=== PATIENT | female | born 1935 | race Caucasian/White ===

== ENCOUNTER → 2016-07-17 | Outpatient (CLI) | payer MEDICARE, OTHER ==
[~2016-07-17] MED LIST: ACYC-113 PO; ALBU8.5H3 INH; ALBU8.5H5 INH; CEFD300C2 PO; CETI10TA24 PO; DIGESTIVE HEALTH; FLUT16SP NAS; FLUT1DIS3 INH; GLUC-100 PO; GUAI-110 PO; HYDR-3240 PO; HYDR-882 PO; LEVO250T23 PO; MORP15TA39 PO; SULF1TAB24 PO; TIZA2TAB PO; VANC1VIA3 PO; cranberry PO; cystex; lidocaine patch 5%; pepto bismol
== END | disposition home or self-care (01) ==
LOC: WOUND 13:33
PROVIDERS: ATTEND Nurse Practitioner Family
DX: R21 Rash and other nonspecific skin eruption (principal); J44.9 Chronic obstructive pulmonary disease, unspecified; L95.9 Vasculitis limited to the skin, unspecified; M19.90 Unspecified osteoarthritis, unspecified site; Z99.81 Dependence on supplemental oxygen; F17.218 Nicotine dependence, cigarettes, with other nicotine-induced disorders
CPT/HCPCS: 87070; 87205; G0463; WOU0463

== ENCOUNTER 2016-09-28 16:47 | Inpatient (IN) | payer MEDICARE, OTHER ==
[~2016-09-28] VITALS: Ht 162.6 cm; Wt 72.0 kg
[~2016-09-28 16:47] MED LIST changes: -CEFD300C2 PO; +CEFD300C37 PO
[2016-09-28] MEDS ORDERED: HYDROcodone/APAP 5/325 TABLET PO ONE (17:30)
[2016-09-28] MEDS ORDERED: SODIUM CHLORIDE 0.9% 1,000ML IVBOLUS ONE (17:30)
[2016-09-28] MEDS ORDERED: SODIUM CHLORIDE FLUSH 10ML SYR IVF ONE (17:30)
[2016-09-28] MEDS ORDERED: ONDANSETRON 2MG/ML, 2ML IVPush ONE (17:30)
[2016-09-28 18:52] LABS: BLOOD UREA NITROGEN 18 mg/dL (7-18)
[2016-09-28 18:56] LABS: ASPARTATE AMINO TRANSFERASE 7 U/L (15-37)
[2016-09-28] MEDS ORDERED: HYDROcodone/APAP 5/325 TABLET ONE (19:59)
[2016-09-28] MEDS ORDERED: CETI-237 PO (20:23)
[2016-09-28] MEDS ORDERED: NYST5000 PO (20:23)
[2016-09-28] MEDS ORDERED: GUAI12003 PO (20:23)
[2016-09-28] MEDS ORDERED: ASPI-650 PO (20:23)
[2016-09-28] MEDS ORDERED: POTA20TA14 PO (20:23)
[2016-09-28] MEDS ORDERED: FURO20TA3 PO (20:23)
[2016-09-28] MEDS ORDERED: PHEN95TA30 PO (20:23)
[2016-09-28] MEDS ORDERED: VITA150T PO (20:23)
[2016-09-28] MEDS ORDERED: BUDE10.2 INH (20:23)
[2016-09-28] MEDS ORDERED: CALC-316 PO (20:23)
[2016-09-28] MEDS ORDERED: HYDR-3307 PO (20:23)
[2016-09-28] MEDS ORDERED: OXYM10TA PO (20:23)
[2016-09-28] MEDS ORDERED: CLOB15CR19 TP (20:23)
[2016-09-28] MEDS ORDERED: DICL75TA2 PO (20:23)
[2016-09-28] MEDS ORDERED: MONT10TA6 PO (20:23)
[2016-09-28] MEDS ORDERED: GLUC500T8 PO (20:23)
[2016-09-28] MEDS ORDERED: AMPICILLIN/SULBACTAM 3 GM IM ONE (20:30)
[2016-09-28] MEDS ORDERED: AMPICILLIN/SULBACTAM 3 GM in SODIUM CHLORIDE 0.9% 100 ML IV ONE (21:00)
[2016-09-28] MEDS: DICLOFENAC SODIUM 75 MG TABLET.DR PO SCH (22:00)
[2016-09-28] MEDS ORDERED: PHENAZOPYRIDINE HCL 95 MG PO SCH (22:00)
[2016-09-28] MEDS: SODIUM CHLORIDE FLUSH 3ML SYRINGE IVF SCH (22:00)
[2016-09-28] MEDS: AMPICILLIN/SULBACTAM 3 GM in SODIUM CHLORIDE 0.9% 100 ML IV SCH (22:00)
[2016-09-28] MEDS ORDERED: ACETAMINOPHEN 325 MG TABLET PO PRN (22:00)
[2016-09-28] MEDS ORDERED: VANCOMYCIN PER PHARMACY MC PRN (22:00)
[2016-09-28] MEDS ORDERED: ACYCLOVIR 200 MG CAPSULE PO SCH (22:00)
[2016-09-28] MEDS ORDERED: POLYETHYLENE GLYCOL 17 GM PACKET PO PRN (22:00)
[2016-09-28] MEDS ORDERED: BISACODYL 10 MG SUPP PR PRN (22:00)
[2016-09-28] MEDS: morphine SULFATE 10 MG/ML, 1ML IVPush PRN (22:38)
[2016-09-28] MEDS ORDERED: VANCOMYCIN 1,400 MG in SODIUM CHLORIDE 0.9% 250 ML IV ONE (23:00)
[2016-09-28] MEDS ORDERED: VANCOMYCIN 1,200 MG in SODIUM CHLORIDE 0.9% 250 ML IV ONE (23:00)
[2016-09-28] MEDS ORDERED: PHARMACOKINETIC MONITORING MC PRN (23:00)
[2016-09-28] MEDS: URISTAT MC SCH (23:00)
[2016-09-28 23:30] VITALS: BP 97/44
[2016-09-28] MEDS: HEPARIN 5,000 UNITS/ML, 1ML SQ SCH (23:47)
[2016-09-29] MEDS: AMPICILLIN/SULBACTAM 3 GM in SODIUM CHLORIDE 0.9% 100 ML IV SCH ×4 (03:28→23:31)
[2016-09-29 03:54] VITALS: BP 113/43
[2016-09-29 06:04] LABS: ASPARTATE AMINO TRANSFERASE 11 U/L (15-37); BLOOD UREA NITROGEN 16 mg/dL (7-18)
[2016-09-29] MEDS: URISTAT MC SCH ×2 (07:00→13:05)
[2016-09-29] MEDS: GLUCOSAMINE HCL 500 MG HOMEMEDPO SCH (08:06)
[2016-09-29] MEDS: POTASSIUM CHLORIDE 20 MEQ TAB.ER.PRT PO SCH (08:12)
[2016-09-29] MEDS: FUROSEMIDE 20 MG TABLET PO SCH (08:12)
[2016-09-29] MEDS: SENNA/DOCUSATE TABLET PO SCH (08:13)
[2016-09-29] MEDS: CALCIUM/VITAMIN D3 250-125 TABLET PO SCH (08:13)
[2016-09-29] MEDS: MONTELUKAST 10 MG TABLET PO SCH (08:14)
[2016-09-29] MEDS: CETIRIZINE 10 MG TABLET PO SCH (08:14)
[2016-09-29] MEDS: DICLOFENAC SODIUM 75 MG TABLET.DR PO SCH ×2 (08:14→20:35)
[2016-09-29] MEDS: HEPARIN 5,000 UNITS/ML, 1ML SQ SCH ×3 (08:15→23:32)
[2016-09-29] MEDS: ASPIRIN 325 MG TABLET EC PO SCH (08:15)
[2016-09-29 08:30] VITALS: BP 122/52
[2016-09-29] MEDS: SODIUM CHLORIDE FLUSH 3ML SYRINGE IVF SCH ×2 (09:00→20:34)
[2016-09-29] MEDS: FLUTICASONE/VILANTEROL 200-25MCG/INH INH SCH (10:08)
[2016-09-29] MEDS: morphine SULFATE 10 MG/ML, 1ML IVPush PRN ×4 (10:09→20:51)
[2016-09-29] MEDS ORDERED: ACYCLOVIR MC SCH (12:00)
[2016-09-29 14:30] VITALS: BP 113/89
[2016-09-29 19:49] VITALS: BP 107/41
[2016-09-30 02:00] VITALS: BP 110/44
[2016-09-30] MEDS: morphine SULFATE 10 MG/ML, 1ML IVPush PRN ×5 (04:44→21:33)
[2016-09-30] MEDS: AMPICILLIN/SULBACTAM 3 GM in SODIUM CHLORIDE 0.9% 100 ML IV SCH ×4 (05:35→23:32)
[2016-09-30 05:38] LABS: BLOOD UREA NITROGEN 14 mg/dL (7-18)
[2016-09-30 07:58] VITALS: BP 122/53
[2016-09-30] MEDS ORDERED: PHENAZOPYRIDINE 100 MG TABLET PO PRN (09:00)
[2016-09-30] MEDS: SENNA/DOCUSATE TABLET PO SCH (09:00)
[2016-09-30] MEDS: SODIUM CHLORIDE FLUSH 3ML SYRINGE IVF SCH ×2 (09:00→21:00)
[2016-09-30] MEDS: CALCIUM/VITAMIN D3 250-125 TABLET PO SCH ×2 (09:45→13:20)
[2016-09-30] MEDS: HEPARIN 5,000 UNITS/ML, 1ML SQ SCH ×2 (09:57→17:12)
[2016-09-30] MEDS: FLUTICASONE/VILANTEROL 200-25MCG/INH INH SCH (09:57)
[2016-09-30] MEDS: VANCOMYCIN 1,400 MG in SODIUM CHLORIDE 0.9% 250 ML IV SCH (11:18)
[2016-09-30] MEDS ORDERED: MIDAZOLAM 1 MG/ML, 5ML ONE ×2 (12:10→12:11)
[2016-09-30] MEDS ORDERED: FLUMAZENIL 0.1 MG/1 ML, 5ML ONE (12:11)
[2016-09-30] MEDS ORDERED: FENTANYL PF 100 MCG/2ML ONE (12:11)
[2016-09-30] MEDS ORDERED: NALOXONE 1 MG/ML, 2ML ONE (12:11)
[2016-09-30 12:52] VITALS: BP 113/46
[2016-09-30] MEDS: ASPIRIN 325 MG TABLET EC PO SCH (13:20)
[2016-09-30] MEDS: FUROSEMIDE 20 MG TABLET PO SCH (13:20)
[2016-09-30] MEDS: ACYCLOVIR 200 MG CAPSULE PO SCH (13:20)
[2016-09-30] MEDS: CETIRIZINE 10 MG TABLET PO SCH (13:21)
[2016-09-30] MEDS: POTASSIUM CHLORIDE 20 MEQ TAB.ER.PRT PO SCH (13:21)
[2016-09-30] MEDS: DICLOFENAC SODIUM 75 MG TABLET.DR PO SCH ×2 (13:21→21:00)
[2016-09-30] MEDS: MONTELUKAST 10 MG TABLET PO SCH (13:21)
[2016-09-30] MEDS: GLUCOSAMINE HCL 500 MG HOMEMEDPO SCH (13:22)
[2016-09-30] MEDS ORDERED: VANCOMYCIN PER PHARMACY MC PRN (15:00)
[2016-09-30] MEDS ORDERED: PHARMACOKINETIC MONITORING MC PRN (15:00)
[2016-09-30] MEDS ORDERED: LIDOCAINE 1%, 10ML INFIL ONE (17:00)
[2016-09-30 19:28] VITALS: BP 92/40
[2016-09-30 20:25] VITALS: BP 114/42
[2016-09-30] MEDS: CLOBETASOL PROPIONATE TP PRN (21:34)
[2016-09-30] MEDS: USP TP PRN (21:34)
[2016-10-01] MEDS: HEPARIN 5,000 UNITS/ML, 1ML SQ SCH ×3 (00:46→16:00)
[2016-10-01 01:08] VITALS: BP 111/47
[2016-10-01] MEDS: morphine SULFATE 10 MG/ML, 1ML IVPush PRN ×3 (02:13→17:25)
[2016-10-01] MEDS: AMPICILLIN/SULBACTAM 3 GM in SODIUM CHLORIDE 0.9% 100 ML IV SCH ×4 (05:45→23:30)
[2016-10-01 06:52] VITALS: BP 109/54
[2016-10-01] MEDS: SODIUM CHLORIDE FLUSH 3ML SYRINGE IVF SCH ×2 (09:00→21:00)
[2016-10-01] MEDS: GLUCOSAMINE HCL 500 MG HOMEMEDPO SCH (09:00)
[2016-10-01] MEDS: FLUTICASONE/VILANTEROL 200-25MCG/INH INH SCH (09:00)
[2016-10-01] MEDS: ACYCLOVIR 200 MG CAPSULE PO SCH (09:45)
[2016-10-01] MEDS: ASPIRIN 325 MG TABLET EC PO SCH (09:45)
[2016-10-01] MEDS: SENNA/DOCUSATE TABLET PO SCH (09:45)
[2016-10-01] MEDS: MONTELUKAST 10 MG TABLET PO SCH (09:45)
[2016-10-01] MEDS: FUROSEMIDE 20 MG TABLET PO SCH (09:45)
[2016-10-01] MEDS: CETIRIZINE 10 MG TABLET PO SCH (09:45)
[2016-10-01] MEDS: DICLOFENAC SODIUM 75 MG TABLET.DR PO SCH ×2 (09:45→21:00)
[2016-10-01] MEDS: POTASSIUM CHLORIDE 20 MEQ TAB.ER.PRT PO SCH (09:45)
[2016-10-01] MEDS: ONDANSETRON 2MG/ML, 2ML IVPush PRN (11:50)
[2016-10-01 14:10] VITALS: BP 90/45
[2016-10-01 19:05] VITALS: BP 100/47
[2016-10-01] MEDS: HYDROcodone/APAP 5/325 TABLET PO PRN (20:15)
[2016-10-01] MEDS ORDERED: HYDROcodone/APAP 5/325 TABLET ONE (20:20)
[2016-10-01] MEDS: VANCOMYCIN 1,400 MG in SODIUM CHLORIDE 0.9% 250 ML IV SCH (23:00)
[2016-10-02] MEDS ORDERED: HYDROcodone/APAP 5/325 TABLET ONE (01:41)
[2016-10-02] MEDS: HYDROcodone/APAP 5/325 TABLET PO PRN ×2 (01:45→20:48)
[2016-10-02 02:30] VITALS: BP 109/48
[2016-10-02] MEDS: AMPICILLIN/SULBACTAM 3 GM in SODIUM CHLORIDE 0.9% 100 ML IV SCH ×4 (05:30→23:16)
[2016-10-02 07:20] VITALS: BP 117/53
[2016-10-02] MEDS: HEPARIN 5,000 UNITS/ML, 1ML SQ SCH ×3 (08:00→17:31)
[2016-10-02] MEDS: ASPIRIN 325 MG TABLET EC PO SCH (09:00)
[2016-10-02] MEDS: DICLOFENAC SODIUM 75 MG TABLET.DR PO SCH ×3 (09:00→20:48)
[2016-10-02] MEDS: FLUTICASONE/VILANTEROL 200-25MCG/INH INH SCH (09:00)
[2016-10-02] MEDS: POTASSIUM CHLORIDE 20 MEQ TAB.ER.PRT PO SCH (09:00)
[2016-10-02] MEDS: ACYCLOVIR 200 MG CAPSULE PO SCH (09:00)
[2016-10-02] MEDS: CALCIUM/VITAMIN D3 250-125 TABLET PO SCH (09:00)
[2016-10-02] MEDS: SODIUM CHLORIDE FLUSH 3ML SYRINGE IVF SCH ×2 (09:00→20:49)
[2016-10-02] MEDS: SENNA/DOCUSATE TABLET PO SCH (09:00)
[2016-10-02] MEDS: GLUCOSAMINE HCL 500 MG HOMEMEDPO SCH (09:00)
[2016-10-02] MEDS: FUROSEMIDE 20 MG TABLET PO SCH (09:00)
[2016-10-02] MEDS: CETIRIZINE 10 MG TABLET PO SCH (09:00)
[2016-10-02] MEDS: MONTELUKAST 10 MG TABLET PO SCH (09:00)
[2016-10-02] MEDS: ONDANSETRON 2MG/ML, 2ML IVPush PRN (10:15)
[2016-10-02] MEDS: morphine SULFATE 10 MG/ML, 1ML IVPush PRN ×3 (10:15→21:50)
[2016-10-02] MEDS: USP TP PRN ×2 (11:30→20:54)
[2016-10-02] MEDS: CLOBETASOL PROPIONATE TP PRN ×2 (11:30→20:54)
[2016-10-02 13:16] VITALS: BP 117/52
[2016-10-02 14:26] VITALS: BP 117/92
[2016-10-02 19:43] VITALS: BP 100/48
[2016-10-03] MEDS ORDERED: OMNIPAQUE 350 MG/ML, 100ML BOTTLE ONE (00:44)
[2016-10-03 01:29] LABS: BLOOD UREA NITROGEN 13 mg/dL (7-18)
[2016-10-03 01:56] VITALS: BP 106/48
[2016-10-03] MEDS: HEPARIN 5,000 UNITS/ML, 1ML SQ SCH ×3 (05:32→23:48)
[2016-10-03] MEDS: AMPICILLIN/SULBACTAM 3 GM in SODIUM CHLORIDE 0.9% 100 ML IV SCH (05:32)
[2016-10-03 07:37] VITALS: BP 103/43
[2016-10-03 07:37] LABS: BLOOD UREA NITROGEN 14 mg/dL (7-18)
[2016-10-03] MEDS: SENNA/DOCUSATE TABLET PO SCH (09:00)
[2016-10-03] MEDS: FLUTICASONE/VILANTEROL 200-25MCG/INH INH SCH (09:00)
[2016-10-03] MEDS: SODIUM CHLORIDE FLUSH 3ML SYRINGE IVF SCH ×2 (09:00→20:53)
[2016-10-03] MEDS: GLUCOSAMINE HCL 500 MG HOMEMEDPO SCH (09:00)
[2016-10-03] MEDS: VANCOMYCIN 1,400 MG in SODIUM CHLORIDE 0.9% 250 ML IV SCH ×2 (09:00→09:55)
[2016-10-03] MEDS: ASPIRIN 325 MG TABLET EC PO SCH (09:54)
[2016-10-03] MEDS: FUROSEMIDE 20 MG TABLET PO SCH (09:55)
[2016-10-03] MEDS: MONTELUKAST 10 MG TABLET PO SCH (09:55)
[2016-10-03] MEDS: DICLOFENAC SODIUM 75 MG TABLET.DR PO SCH ×2 (09:55→20:48)
[2016-10-03] MEDS: CALCIUM/VITAMIN D3 250-125 TABLET PO SCH (09:55)
[2016-10-03] MEDS: POTASSIUM CHLORIDE 20 MEQ TAB.ER.PRT PO SCH (09:55)
[2016-10-03] MEDS: ACYCLOVIR 200 MG CAPSULE PO SCH (09:56)
[2016-10-03] MEDS: CETIRIZINE 10 MG TABLET PO SCH (09:56)
[2016-10-03] MEDS: CLOBETASOL PROPIONATE TP PRN (10:00)
[2016-10-03] MEDS: USP TP PRN (10:00)
[2016-10-03] MEDS: morphine SULFATE 10 MG/ML, 1ML IVPush PRN ×4 (10:07→23:48)
[2016-10-03 13:19] VITALS: BP 105/43
[2016-10-03] MEDS: PIPERACILLIN/TAZO 3.375 GM in SODIUM CHLORIDE 0.9% 50 ML IV SCH ×2 (13:23→20:48)
[2016-10-03 19:48] VITALS: BP 119/49
[2016-10-03] MEDS: PIPERACILLIN/TAZO/PMX 3.375GM 50 ML IV SCH (21:50)
[2016-10-04 02:32] VITALS: BP 111/49
[2016-10-04] MEDS: PIPERACILLIN/TAZO/PMX 3.375GM 50 ML IV SCH ×3 (02:37→17:35)
[2016-10-04 07:25] VITALS: BP 100/44
[2016-10-04] MEDS: GLUCOSAMINE HCL 500 MG HOMEMEDPO SCH (09:00)
[2016-10-04] MEDS: POTASSIUM CHLORIDE 20 MEQ TAB.ER.PRT PO SCH (09:00)
[2016-10-04] MEDS: DICLOFENAC SODIUM 75 MG TABLET.DR PO SCH ×2 (09:00→21:00)
[2016-10-04] MEDS: FLUTICASONE/VILANTEROL 200-25MCG/INH INH SCH (09:00)
[2016-10-04] MEDS: SODIUM CHLORIDE FLUSH 3ML SYRINGE IVF SCH ×2 (09:00→21:00)
[2016-10-04] MEDS: SENNA/DOCUSATE TABLET PO SCH (09:31)
[2016-10-04] MEDS: HEPARIN 5,000 UNITS/ML, 1ML SQ SCH ×2 (09:31→17:35)
[2016-10-04] MEDS: MONTELUKAST 10 MG TABLET PO SCH (09:32)
[2016-10-04] MEDS: ASPIRIN 325 MG TABLET EC PO SCH (09:32)
[2016-10-04] MEDS: CALCIUM/VITAMIN D3 250-125 TABLET PO SCH (09:32)
[2016-10-04] MEDS: FUROSEMIDE 20 MG TABLET PO SCH (09:32)
[2016-10-04] MEDS: ACYCLOVIR 200 MG CAPSULE PO SCH (09:33)
[2016-10-04] MEDS: CETIRIZINE 10 MG TABLET PO SCH (09:33)
[2016-10-04] MEDS: HYDROcodone/APAP 5/325 TABLET PO PRN ×2 (11:56→17:35)
[2016-10-04 13:35] VITALS: BP 111/45
[2016-10-04 14:28] LABS: BLOOD UREA NITROGEN 13 mg/dL (7-18)
[2016-10-04] MEDS: morphine SULFATE 10 MG/ML, 1ML IVPush PRN ×2 (15:39→22:31)
[2016-10-04 18:59] VITALS: BP 117/41
[2016-10-05] MEDS: PIPERACILLIN/TAZO/PMX 3.375GM 50 ML IV SCH ×3 (00:34→12:45)
[2016-10-05] MEDS: HEPARIN 5,000 UNITS/ML, 1ML SQ SCH ×4 (01:39→21:54)
[2016-10-05 01:45] VITALS: BP 115/46
[2016-10-05] MEDS: ONDANSETRON 2MG/ML, 2ML IVPush PRN (05:56)
[2016-10-05 07:48] VITALS: BP 131/57
[2016-10-05] MEDS: POTASSIUM CHLORIDE 20 MEQ TAB.ER.PRT PO SCH (09:00)
[2016-10-05] MEDS: GLUCOSAMINE HCL 500 MG HOMEMEDPO SCH (09:00)
[2016-10-05] MEDS: FLUTICASONE/VILANTEROL 200-25MCG/INH INH SCH (09:00)
[2016-10-05] MEDS: SODIUM CHLORIDE FLUSH 3ML SYRINGE IVF SCH ×2 (09:00→21:00)
[2016-10-05] MEDS: SENNA/DOCUSATE TABLET PO SCH (09:00)
[2016-10-05] MEDS: DICLOFENAC SODIUM 75 MG TABLET.DR PO SCH ×2 (09:00→21:00)
[2016-10-05] MEDS: morphine SULFATE 10 MG/ML, 1ML IVPush PRN ×3 (09:24→21:54)
[2016-10-05] MEDS: CETIRIZINE 10 MG TABLET PO SCH (09:25)
[2016-10-05] MEDS: ASPIRIN 325 MG TABLET EC PO SCH (09:25)
[2016-10-05] MEDS: CALCIUM/VITAMIN D3 250-125 TABLET PO SCH (09:25)
[2016-10-05] MEDS: ACYCLOVIR 200 MG CAPSULE PO SCH (09:25)
[2016-10-05] MEDS: FUROSEMIDE 20 MG TABLET PO SCH (09:25)
[2016-10-05] MEDS: MONTELUKAST 10 MG TABLET PO SCH (09:26)
[2016-10-05 12:53] VITALS: BP 102/45
[2016-10-05] MEDS: HYDROcodone/APAP 5/325 TABLET PO PRN (16:22)
[2016-10-05] MEDS ORDERED: LEVOFLOXACIN 500 MG TABLET PO SCH (20:00)
[2016-10-05 20:11] VITALS: BP 98/45
[2016-10-06 01:07] VITALS: BP 119/46
[2016-10-06] MEDS: morphine SULFATE 10 MG/ML, 1ML IVPush PRN ×3 (01:32→13:19)
[2016-10-06] MEDS: HEPARIN 5,000 UNITS/ML, 1ML SQ SCH ×2 (06:18→14:00)
[2016-10-06 07:29] VITALS: BP 103/46
[2016-10-06] MEDS: SODIUM CHLORIDE FLUSH 3ML SYRINGE IVF SCH (08:29)
[2016-10-06] MEDS: POTASSIUM CHLORIDE 20 MEQ TAB.ER.PRT PO SCH (08:30)
[2016-10-06] MEDS: SENNA/DOCUSATE TABLET PO SCH (08:30)
[2016-10-06] MEDS: ASPIRIN 325 MG TABLET EC PO SCH (08:43)
[2016-10-06] MEDS: FUROSEMIDE 20 MG TABLET PO SCH (08:43)
[2016-10-06] MEDS: ACYCLOVIR 200 MG CAPSULE PO SCH (08:44)
[2016-10-06] MEDS: MONTELUKAST 10 MG TABLET PO SCH (08:44)
[2016-10-06] MEDS: CALCIUM/VITAMIN D3 250-125 TABLET PO SCH (08:44)
[2016-10-06] MEDS: DICLOFENAC SODIUM 75 MG TABLET.DR PO SCH (08:45)
[2016-10-06] MEDS: CETIRIZINE 10 MG TABLET PO SCH (08:46)
[2016-10-06] MEDS: GLUCOSAMINE HCL 500 MG HOMEMEDPO SCH (08:46)
[2016-10-06] MEDS ORDERED: LEVO500T33 PO (11:05)
[2016-10-06] MEDS ORDERED: LACT1CAP33 PO (11:05)
[2016-10-06 14:03] VITALS: BP 104/48
[2016-10-09 14:07] LABS: PROTEINASE 3 (PR-3) AB <3.5 U/mL (0.0-3.5)
[2016-10-09 19:06] LABS: CYCLIC CITRULLINATED PEP IGG/A 15 units (0-19); RA LATEX TURBIDITY <10.0 IU/mL (0.0-13.9)
== END 2016-10-06 15:15 | disposition home health service (06) | DRG 602 ==
LOC: ED 18:48 → EDIP 22:05 → 3NE 22:12
PROVIDERS: ADMIT Internal Medicine; ATTEND Internal Medicine
PROC: 0T9B70Z Drainage of Bladder with Drainage Device, Via Natural or Artificial Opening (ICD-10-PCS; principal; 2016-09-28)
DX: L03.116 Cellulitis of left lower limb (principal); E43 Unspecified severe protein-calorie malnutrition; J96.10 Chronic respiratory failure, unspecified whether with hypoxia or hypercapnia; N39.0 Urinary tract infection, site not specified; J98.11 Atelectasis; L97.929 Non-pressure chronic ulcer of unspecified part of left lower leg with unspecified severity; I83.228 Varicose veins of left lower extremity with both ulcer of other part of lower extremity and inflammation; B02.9 Zoster without complications; B96.20 Unspecified Escherichia coli [E. coli] as the cause of diseases classified elsewhere; D53.9 Nutritional anemia, unspecified; D75.89 Other specified diseases of blood and blood-forming organs; E53.8 Deficiency of other specified B group vitamins; G89.29 Other chronic pain; M54.9 Dorsalgia, unspecified; J44.9 Chronic obstructive pulmonary disease, unspecified; L03.115 Cellulitis of right lower limb; M19.90 Unspecified osteoarthritis, unspecified site; Z66 Do not resuscitate; Z79.2 Long term (current) use of antibiotics; Z80.8 Family history of malignant neoplasm of other organs or systems; Z82.5 Family history of asthma and other chronic lower respiratory diseases; Z85.41 Personal history of malignant neoplasm of cervix uteri; Z85.42 Personal history of malignant neoplasm of other parts of uterus; Z86.14 Personal history of Methicillin resistant Staphylococcus aureus infection; Z99.81 Dependence on supplemental oxygen; Z87.01 Personal history of pneumonia (recurrent); Z90.710 Acquired absence of both cervix and uterus; Z79.899 Other long term (current) drug therapy; Z87.891 Personal history of nicotine dependence; Z88.8 Allergy status to other drugs, medicaments and biological substances; Z88.5 Allergy status to narcotic agent
CPT/HCPCS: 36415; 71010; 80048; 80053; 81001; 83520; 83605; 83690; 85025; 85610; 85651; 85730; 86038; 86140; 86200; 86256; 86431; 87040; 87070; 87077; 87086; 87186; 87205; 87324; 87493; 93005; 93922; 96361; 96365; J0295; J1644; J2250; J2405; J2543; J3010; J3370; J3490; Q9967; J2270; J2310; J7030; J7050

== ENCOUNTER 2016-10-27 18:31 | Inpatient (IN) | payer MEDICARE, OTHER ==
[~2016-10-27] VITALS: Ht 162.6 cm; Wt 76.1 kg
[~2016-10-27 18:31] MED LIST changes: +ACIDOPHILUS PROB1 MG PO; +ASPI-650 PO; +BUDE10.2 INH; +CALC-316 PO; +CETI-237 PO; +CLOB15CR19 TP; +DICL75TA2 PO; +FURO20TA3 PO; +GLUC500T8 PO; +GUAI12003 PO; +HYDR-3307 PO; +LEVO500T33 PO; +MONT10TA6 PO; +MORP-52 PO; -MORP15TA39 PO; +NYST5000 PO; +OXYM10TA PO; +PHEN95TA30 PO; +POTA20TA14 PO; +VITA150T PO
[2016-10-27] MEDS ORDERED: METRONIDAZOLE PMX 500MG/100ML 100 ML ONE (19:19)
[2016-10-27] MEDS ORDERED: SODIUM CHLORIDE 0.9% 1,000ML IVBOLUS ONE (19:30)
[2016-10-27] MEDS ORDERED: METRONIDAZOLE PMX 500MG/100ML 100 ML IV ONE (19:30)
[2016-10-27] MEDS ORDERED: MORPHINE SULFATE 4 MG/ML, 1ML ONE (20:23)
[2016-10-27] MEDS ORDERED: ONDANSETRON 2MG/ML, 2ML IVPush ONE (20:30)
[2016-10-27 20:32] LABS: ASPARTATE AMINO TRANSFERASE 14 U/L (15-37); BLOOD UREA NITROGEN 23 mg/dL (7-18)
[2016-10-27] MEDS: MORPHINE SULFATE 4 MG/ML, 1ML IVPush PRN ×2 (20:34→20:49)
[2016-10-27] MEDS ORDERED: BISM262T9 PO (20:54)
[2016-10-27] MEDS ORDERED: VANC125C2 PO (20:54)
[2016-10-27] MEDS ORDERED: VITA150T PO (20:54)
[2016-10-27] MEDS ORDERED: PHEN95TA30 PO (20:54)
[2016-10-27] MEDS ORDERED: VITA15LO2 PO (20:54)
[2016-10-27] MEDS ORDERED: ASCO500T8 PO (20:54)
[2016-10-27] MEDS ORDERED: NYST15CR33 TD (20:54)
[2016-10-27] MEDS ORDERED: NITR100C PO (20:54)
[2016-10-27] MEDS ORDERED: CALC-148 PO (20:54)
[2016-10-27] MEDS ORDERED: GLUC-121 PO (20:54)
[2016-10-27] MEDS ORDERED: LABETALOL 5MG/ML 40ML VIAL IVPush PRN (21:30)
[2016-10-27] MEDS ORDERED: NYSTATIN CRM 15GM TP ONE (21:30)
[2016-10-27] MEDS ORDERED: PHENAZOPYRIDINE HCL 95 MG PO PRN (21:30)
[2016-10-27 23:06] VITALS: BP 130/64
[2016-10-27] MEDS: SODIUM CHLORIDE 0.9% 1,000 ML IV SCH (23:21)
[2016-10-28] MEDS: VANCOMYCIN 50 MG/ML ORAL SUSP PO SCH ×5 (00:46→20:49)
[2016-10-28] MEDS: FLUTICASONE/VILANTEROL 200-25MCG/INH INH SCH ×2 (00:46→08:45)
[2016-10-28] MEDS: NITROFURANTOIN (MACROBID) 100 MG CAPSULE PO SCH ×3 (00:46→20:49)
[2016-10-28 01:39] VITALS: BP 115/58
[2016-10-28 05:49] LABS: BLOOD UREA NITROGEN 20 mg/dL (7-18)
[2016-10-28] MEDS ORDERED: VANCOMYCIN HCL 125 MG PO SCH (06:00)
[2016-10-28] MEDS: HEPARIN 5,000 UNITS/ML, 1ML SQ SCH ×3 (06:02→20:49)
[2016-10-28] MEDS: morphine SULFATE 10 MG/ML, 1ML IVPush PRN ×4 (06:15→23:51)
[2016-10-28 07:48] VITALS: BP 120/62
[2016-10-28] MEDS: ACYCLOVIR 200 MG CAPSULE PO SCH (08:45)
[2016-10-28] MEDS: DICLOFENAC SODIUM 75 MG TABLET.DR PO SCH ×2 (08:45→20:49)
[2016-10-28] MEDS: MONTELUKAST 10 MG TABLET PO SCH (08:45)
[2016-10-28] MEDS: ASPIRIN 325 MG TABLET EC PO SCH (08:45)
[2016-10-28] MEDS: MULTIVITS,STRESS FORMULA 1 TABLET PO SCH (08:45)
[2016-10-28] MEDS: OXYMORPHONE HCL 10 MG PO SCH ×2 (09:00→21:00)
[2016-10-28] MEDS: LACTOBACILLUS CHEW TABLET PO SCH ×3 (11:19→20:49)
[2016-10-28] MEDS: PHENAZOPYRIDINE 100 MG TABLET PO SCH ×3 (11:19→20:50)
[2016-10-28 12:37] VITALS: BP 113/55
[2016-10-28] MEDS: HYDROcodone/APAP 10/325 MG TABLET PO PRN ×2 (13:57→18:51)
[2016-10-28] MEDS: SODIUM CHLORIDE 0.9% 1,000 ML IV SCH (13:59)
[2016-10-28] MEDS: CLOBETASOL PROPIONATE CRM 0.05%, 15GM TP SCH (15:54)
[2016-10-28] MEDS: ONDANSETRON 2MG/ML, 2ML IVPush PRN (19:43)
[2016-10-28 21:26] VITALS: BP 110/59
[2016-10-29 00:27] VITALS: BP 117/47
[2016-10-29] MEDS: morphine SULFATE 10 MG/ML, 1ML IVPush PRN ×3 (03:13→10:30)
[2016-10-29] MEDS: VANCOMYCIN 50 MG/ML ORAL SUSP PO SCH ×4 (05:48→20:29)
[2016-10-29] MEDS: HEPARIN 5,000 UNITS/ML, 1ML SQ SCH ×3 (05:48→20:31)
[2016-10-29 06:22] LABS: BLOOD UREA NITROGEN 15 mg/dL (7-18)
[2016-10-29 07:04] VITALS: BP 124/50
[2016-10-29] MEDS ORDERED: LORazepam 2 MG/ML, 1ML IVPush PRN (09:00)
[2016-10-29] MEDS: FLUTICASONE/VILANTEROL 200-25MCG/INH INH SCH (09:13)
[2016-10-29] MEDS: ASPIRIN 325 MG TABLET EC PO SCH (09:13)
[2016-10-29] MEDS: OXYMORPHONE HCL 10 MG PO SCH ×2 (09:13→20:30)
[2016-10-29] MEDS: NITROFURANTOIN (MACROBID) 100 MG CAPSULE PO SCH (09:14)
[2016-10-29] MEDS: LACTOBACILLUS CHEW TABLET PO SCH ×3 (09:14→20:29)
[2016-10-29] MEDS: PHENAZOPYRIDINE 100 MG TABLET PO SCH ×3 (09:14→20:30)
[2016-10-29] MEDS: MONTELUKAST 10 MG TABLET PO SCH (09:15)
[2016-10-29] MEDS: MULTIVITS,STRESS FORMULA 1 TABLET PO SCH (09:15)
[2016-10-29] MEDS: ACYCLOVIR 200 MG CAPSULE PO SCH (09:15)
[2016-10-29] MEDS: DICLOFENAC SODIUM 75 MG TABLET.DR PO SCH ×2 (09:15→20:29)
[2016-10-29] MEDS: METHOCARBAMOL 500 MG TABLET PO PRN ×2 (10:30→18:00)
[2016-10-29] MEDS ORDERED: OMNIPAQUE 350 MG/ML, 100ML BOTTLE ONE (12:00)
[2016-10-29] MEDS: HYDROcodone/APAP 10/325 MG TABLET PO PRN ×3 (12:04→22:05)
[2016-10-29] MEDS ORDERED: BISACODYL 10 MG SUPP PR PRN (14:30)
[2016-10-29 15:03] VITALS: BP 87/47
[2016-10-29] MEDS: AMPICILLIN/SULBACTAM 3 GM in SODIUM CHLORIDE 0.9% 100 ML IV SCH ×2 (15:05→20:29)
[2016-10-29] MEDS: METRONIDAZOLE PMX 500MG/100ML 100 ML IV SCH (18:00)
[2016-10-29 18:44] VITALS: BP 107/49
[2016-10-30 00:39] VITALS: BP 113/62
[2016-10-30] MEDS: METRONIDAZOLE PMX 500MG/100ML 100 ML IV SCH ×3 (01:32→17:59)
[2016-10-30] MEDS: HYDROcodone/APAP 10/325 MG TABLET PO PRN ×2 (02:09→06:07)
[2016-10-30] MEDS: METHOCARBAMOL 500 MG TABLET PO PRN (02:09)
[2016-10-30] MEDS: AMPICILLIN/SULBACTAM 3 GM in SODIUM CHLORIDE 0.9% 100 ML IV SCH ×4 (02:56→20:43)
[2016-10-30] MEDS: HEPARIN 5,000 UNITS/ML, 1ML SQ SCH ×3 (04:51→20:44)
[2016-10-30] MEDS: VANCOMYCIN 50 MG/ML ORAL SUSP PO SCH ×4 (04:51→20:44)
[2016-10-30 06:20] LABS: ASPARTATE AMINO TRANSFERASE 12 U/L (15-37); BLOOD UREA NITROGEN 14 mg/dL (7-18)
[2016-10-30 07:07] VITALS: BP 92/51
[2016-10-30] MEDS: ACYCLOVIR 200 MG CAPSULE PO SCH (08:53)
[2016-10-30] MEDS: PHENAZOPYRIDINE 100 MG TABLET PO SCH ×3 (08:54→20:43)
[2016-10-30] MEDS: MULTIVITS,STRESS FORMULA 1 TABLET PO SCH (08:54)
[2016-10-30] MEDS: FLUTICASONE/VILANTEROL 200-25MCG/INH INH SCH (08:54)
[2016-10-30] MEDS: MONTELUKAST 10 MG TABLET PO SCH (08:54)
[2016-10-30] MEDS: CLOBETASOL PROPIONATE CRM 0.05%, 15GM TP SCH (08:54)
[2016-10-30] MEDS: LACTOBACILLUS CHEW TABLET PO SCH ×3 (08:54→20:43)
[2016-10-30] MEDS: DICLOFENAC SODIUM 75 MG TABLET.DR PO SCH ×2 (08:54→20:44)
[2016-10-30] MEDS: ASPIRIN 325 MG TABLET EC PO SCH (08:54)
[2016-10-30] MEDS: OXYMORPHONE HCL 10 MG PO SCH (08:55)
[2016-10-30 10:26] VITALS: BP 121/56
[2016-10-30] MEDS: morphine SULFATE 10 MG/ML, 1ML IVPush PRN (10:28)
[2016-10-30] MEDS: MICAFUNGIN 100 MG in SODIUM CHLORIDE 0.9% 100 ML IV SCH ×2 (12:06→13:13)
[2016-10-30] MEDS: OXYcodone IR 5MG TABLET PO PRN ×2 (13:14→23:45)
[2016-10-30 13:36] VITALS: BP 118/60
[2016-10-30 19:24] VITALS: BP 127/67
[2016-10-30] MEDS: ONDANSETRON 2MG/ML, 2ML IVPush PRN (20:49)
[2016-10-30] MEDS: ACETAMINOPHEN 325 MG TABLET PO PRN (23:45)
[2016-10-31 00:24] VITALS: BP 113/58
[2016-10-31] MEDS: METRONIDAZOLE PMX 500MG/100ML 100 ML IV SCH ×3 (02:02→16:57)
[2016-10-31] MEDS: AMPICILLIN/SULBACTAM 3 GM in SODIUM CHLORIDE 0.9% 100 ML IV SCH ×4 (03:06→21:07)
[2016-10-31] MEDS: OXYcodone IR 5MG TABLET PO PRN ×2 (03:59→11:05)
[2016-10-31] MEDS: VANCOMYCIN 50 MG/ML ORAL SUSP PO SCH ×4 (06:14→21:08)
[2016-10-31] MEDS: HEPARIN 5,000 UNITS/ML, 1ML SQ SCH ×3 (06:14→21:08)
[2016-10-31 06:27] LABS: BLOOD UREA NITROGEN 14 mg/dL (7-18)
[2016-10-31 07:22] VITALS: BP 111/63
[2016-10-31] MEDS: ACYCLOVIR 200 MG CAPSULE PO SCH (08:34)
[2016-10-31] MEDS: MONTELUKAST 10 MG TABLET PO SCH (08:34)
[2016-10-31] MEDS: ASPIRIN 325 MG TABLET EC PO SCH (08:34)
[2016-10-31] MEDS: MULTIVITS,STRESS FORMULA 1 TABLET PO SCH (08:34)
[2016-10-31] MEDS: DICLOFENAC SODIUM 75 MG TABLET.DR PO SCH ×2 (08:34→21:08)
[2016-10-31] MEDS: PHENAZOPYRIDINE 100 MG TABLET PO SCH ×3 (08:35→21:07)
[2016-10-31] MEDS: FLUTICASONE/VILANTEROL 200-25MCG/INH INH SCH (08:35)
[2016-10-31] MEDS: LACTOBACILLUS CHEW TABLET PO SCH ×3 (08:35→21:07)
[2016-10-31] MEDS: CLOBETASOL PROPIONATE CRM 0.05%, 15GM TP SCH (08:40)
[2016-10-31] MEDS: ACETAMINOPHEN 325 MG TABLET PO PRN (13:10)
[2016-10-31] MEDS: MICAFUNGIN 100 MG in SODIUM CHLORIDE 0.9% 100 ML IV SCH (13:11)
[2016-10-31] MEDS: HYDROcodone/APAP 5/325 TABLET PO PRN ×2 (14:50→21:08)
[2016-10-31] MEDS ORDERED: OXYMORPHONE 10 MG PO PRN (16:00)
[2016-10-31 16:33] VITALS: BP 143/64
[2016-10-31 19:17] VITALS: BP 124/62
[2016-11-01 02:04] VITALS: BP 116/69
[2016-11-01] MEDS: METRONIDAZOLE PMX 500MG/100ML 100 ML IV SCH (02:05)
[2016-11-01] MEDS: HYDROcodone/APAP 5/325 TABLET PO PRN ×5 (02:10→19:14)
[2016-11-01] MEDS: AMPICILLIN/SULBACTAM 3 GM in SODIUM CHLORIDE 0.9% 100 ML IV SCH (02:30)
[2016-11-01] MEDS: VANCOMYCIN 50 MG/ML ORAL SUSP PO SCH ×4 (06:08→23:18)
[2016-11-01] MEDS: HEPARIN 5,000 UNITS/ML, 1ML SQ SCH (06:09)
[2016-11-01 07:29] VITALS: BP 123/60
[2016-11-01] MEDS: MULTIVITS,STRESS FORMULA 1 TABLET PO SCH (10:14)
[2016-11-01] MEDS: PHENAZOPYRIDINE 100 MG TABLET PO SCH ×3 (10:14→23:18)
[2016-11-01] MEDS: LACTOBACILLUS CHEW TABLET PO SCH ×3 (10:14→23:17)
[2016-11-01] MEDS: VORICONAZOLE 200 MG TABLET PO SCH ×2 (10:14→23:18)
[2016-11-01] MEDS: MONTELUKAST 10 MG TABLET PO SCH (10:15)
[2016-11-01] MEDS: DICLOFENAC SODIUM 75 MG TABLET.DR PO SCH ×2 (10:15→23:18)
[2016-11-01] MEDS: AMOXICILLIN/CLAV 875-125MG TABLET PO SCH ×2 (10:15→23:17)
[2016-11-01] MEDS: ACYCLOVIR 200 MG CAPSULE PO SCH (10:15)
[2016-11-01] MEDS: ASPIRIN 325 MG TABLET EC PO SCH (10:15)
[2016-11-01] MEDS: metroNIDAZOLE 500 MG TABLET PO SCH ×3 (10:15→23:17)
[2016-11-01] MEDS: FLUTICASONE/VILANTEROL 200-25MCG/INH INH SCH (10:15)
[2016-11-01] MEDS ORDERED: ENOXAPARIN 40 MG/0.4 ML SQ SCH (14:00)
[2016-11-01 14:02] VITALS: BP 138/65
[2016-11-01 18:31] VITALS: BP 126/63
[2016-11-01] MEDS: OXYMORPHONE HOMEMEDPO SCH (23:16)
[2016-11-02 01:34] VITALS: BP 142/66
[2016-11-02] MEDS: HYDROcodone/APAP 5/325 TABLET PO PRN ×2 (04:17→10:59)
[2016-11-02] MEDS: VANCOMYCIN 50 MG/ML ORAL SUSP PO SCH ×2 (06:01→09:32)
[2016-11-02] MEDS ORDERED: ONDANSETRON ODT 4 MG ONE (06:48)
[2016-11-02] MEDS: ONDANSETRON 2MG/ML, 2ML IVPush PRN (07:34)
[2016-11-02 07:59] VITALS: BP 128/55
[2016-11-02] MEDS: ASPIRIN 325 MG TABLET EC PO SCH (09:00)
[2016-11-02] MEDS: OXYMORPHONE HOMEMEDPO SCH (09:00)
[2016-11-02] MEDS: MULTIVITS,STRESS FORMULA 1 TABLET PO SCH (09:00)
[2016-11-02] MEDS: CLOBETASOL PROPIONATE CRM 0.05%, 15GM TP SCH (09:00)
[2016-11-02] MEDS ORDERED: ACID1TAB7 PO (09:11)
[2016-11-02] MEDS ORDERED: METR500T PO (09:11)
[2016-11-02] MEDS ORDERED: VANC1VIA3 PO (09:11)
[2016-11-02] MEDS ORDERED: VORI200T PO (09:11)
[2016-11-02] MEDS ORDERED: METH500T7 PO (09:11)
[2016-11-02] MEDS ORDERED: ENOX40SY4 SQ (09:11)
[2016-11-02] MEDS ORDERED: OXYMORPHONE HOMEMEDPO (09:11)
[2016-11-02] MEDS ORDERED: AMOX1TAB12 PO (09:11)
[2016-11-02] MEDS: FLUTICASONE/VILANTEROL 200-25MCG/INH INH SCH (09:27)
[2016-11-02] MEDS: VORICONAZOLE 200 MG TABLET PO SCH (09:28)
[2016-11-02] MEDS: AMOXICILLIN/CLAV 875-125MG TABLET PO SCH (09:28)
[2016-11-02] MEDS: LACTOBACILLUS CHEW TABLET PO SCH (09:29)
[2016-11-02] MEDS: METHOCARBAMOL 500 MG TABLET PO PRN (09:30)
[2016-11-02] MEDS: ACYCLOVIR 200 MG CAPSULE PO SCH (09:31)
[2016-11-02] MEDS: MONTELUKAST 10 MG TABLET PO SCH (09:33)
[2016-11-02] MEDS: metroNIDAZOLE 500 MG TABLET PO SCH (09:34)
[2016-11-02] MEDS: DICLOFENAC SODIUM 75 MG TABLET.DR PO SCH (09:35)
[2016-11-02] MEDS: PHENAZOPYRIDINE 100 MG TABLET PO SCH (09:35)
[2016-11-02] MEDS ORDERED: ONDANSETRON ODT 4 MG PO PRN (12:30)
[2016-11-02 13:22] VITALS: BP 124/69
== END 2016-11-02 15:27 | DRG 371 ==
LOC: ED 19:22 → EDIP 21:07 → 4NOR 22:20
PROVIDERS: ADMIT Internal Medicine
PROC: 0T9B70Z Drainage of Bladder with Drainage Device, Via Natural or Artificial Opening (ICD-10-PCS; principal; 2016-10-27)
DX: A04.7 Enterocolitis due to Clostridium difficile (principal); N17.0 Acute kidney failure with tubular necrosis; J18.0 Bronchopneumonia, unspecified organism; J96.10 Chronic respiratory failure, unspecified whether with hypoxia or hypercapnia; E44.0 Moderate protein-calorie malnutrition; J44.0 Chronic obstructive pulmonary disease with (acute) lower respiratory infection; J90 Pleural effusion, not elsewhere classified; K57.92 Diverticulitis of intestine, part unspecified, without perforation or abscess without bleeding; L97.929 Non-pressure chronic ulcer of unspecified part of left lower leg with unspecified severity; J44.9 Chronic obstructive pulmonary disease, unspecified; D64.9 Anemia, unspecified; E86.0 Dehydration; G89.29 Other chronic pain; I77.6 Arteritis, unspecified; K56.41 Fecal impaction; M41.9 Scoliosis, unspecified; M16.0 Bilateral primary osteoarthritis of hip; M51.36 Other intervertebral disc degeneration, lumbar region; N20.0 Calculus of kidney; Z66 Do not resuscitate; Z85.41 Personal history of malignant neoplasm of cervix uteri; Z86.19 Personal history of other infectious and parasitic diseases; Z82.5 Family history of asthma and other chronic lower respiratory diseases; Z82.49 Family history of ischemic heart disease and other diseases of the circulatory system; Z83.3 Family history of diabetes mellitus
CPT/HCPCS: 36415; 71010; 71275; 74000; 74020; 74177; 80048; 80053; 81001; 82607; 82746; 83690; 83735; 84100; 84439; 84443; 85025; 85651; 86141; 87046; 87086; 87106; 87324; 87899; 89055; 93970; 96361; 96365; 96375; J0295; J1644; J2248; J2405; J3370; Q0162; Q9967; J2060; J2270; J7030

== ENCOUNTER 2016-11-25 13:57 | Inpatient (IN) | payer MEDICARE, OTHER ==
[~2016-11-25] VITALS: Ht 162.6 cm; Wt 71.7 kg
[~2016-11-25 13:57] MED LIST changes: +ACID1TAB7 PO; +AMOX1TAB12 PO; +ASCO500T8 PO; +BISM262T9 PO; +CALC-148 PO; +ENOX40SY4 SQ; +GLUC-121 PO; +METH500T7 PO; +METR500T PO; +NITR100C PO; +NYST15CR33 TD; +OXYMORPHONE HOMEMEDPO; +VANC125C2 PO; +VITA15LO2 PO; +VORI200T PO
[2016-11-25] MEDS ORDERED: SODIUM CHLORIDE 0.9% 1,000 ML IV ONE (14:41)
[2016-11-25] MEDS ORDERED: MORPHINE SULFATE 4 MG/ML, 1ML ONE ×2 (14:52→15:55)
[2016-11-25] MEDS ORDERED: ONDANSETRON 2MG/ML, 2ML ONE (14:52)
[2016-11-25] MEDS ORDERED: ONDANSETRON 2MG/ML, 2ML IVPush ONE (15:00)
[2016-11-25] MEDS ORDERED: SODIUM CHLORIDE FLUSH 10ML SYR IVF ONE (15:00)
[2016-11-25] MEDS: MORPHINE SULFATE 4 MG/ML, 1ML IVPush PRN ×2 (15:01→16:00)
[2016-11-25 15:05] LABS: ASPARTATE AMINO TRANSFERASE 13 U/L (15-37); BLOOD UREA NITROGEN 23 mg/dL (7-18)
[2016-11-25] MEDS ORDERED: ENALAPRILAT 1.25 MG/ML, 2ML IVPush PRN (17:30)
[2016-11-25] MEDS: NICOTINE 14MG/24 HR PATCH.TD24 TD SCH (18:16)
[2016-11-25] MEDS: SODIUM CHLORIDE 0.9% 1,000 ML IV SCH (18:19)
[2016-11-25 19:49] VITALS: BP 126/62
[2016-11-25] MEDS ORDERED: ONDANSETRON 2MG/ML, 2ML IVPush PRN (21:00)
[2016-11-25] MEDS: PANTOPRAZOLE 40 MG IV IVPush SCH (21:57)
[2016-11-25] MEDS: ENOXAPARIN 40 MG/0.4 ML SQ SCH (21:58)
[2016-11-25] MEDS: morphine SULFATE 10 MG/ML, 1ML IVPush PRN (22:11)
[2016-11-26] MEDS: SODIUM CHLORIDE 0.9% 1,000 ML IV SCH ×3 (02:26→21:33)
[2016-11-26] MEDS: morphine SULFATE 10 MG/ML, 1ML IVPush PRN ×5 (02:26→22:04)
[2016-11-26 02:57] VITALS: BP 106/61
[2016-11-26 04:59] LABS: ASPARTATE AMINO TRANSFERASE 12 U/L (15-37); BLOOD UREA NITROGEN 14 mg/dL (7-18)
[2016-11-26 07:05] VITALS: BP 114/68
[2016-11-26] MEDS: PANTOPRAZOLE 40 MG IV IVPush SCH ×2 (08:39→21:32)
[2016-11-26 13:00] VITALS: BP 112/69
[2016-11-26] MEDS: NICOTINE 14MG/24 HR PATCH.TD24 TD SCH (17:45)
[2016-11-26 19:47] VITALS: BP 116/55
[2016-11-26] MEDS: ENOXAPARIN 40 MG/0.4 ML SQ SCH (21:33)
[2016-11-27 01:31] VITALS: BP 124/70
[2016-11-27 05:26] LABS: BLOOD UREA NITROGEN 7 mg/dL (7-18)
[2016-11-27] MEDS: SODIUM CHLORIDE 0.9% 1,000 ML IV SCH ×2 (05:36→14:30)
[2016-11-27] MEDS: morphine SULFATE 10 MG/ML, 1ML IVPush PRN ×4 (05:43→20:39)
[2016-11-27 09:21] VITALS: BP 120/62
[2016-11-27] MEDS: PANTOPRAZOLE 40 MG IV IVPush SCH ×2 (10:28→22:04)
[2016-11-27] MEDS ORDERED: SYMBICORT INH PRN (15:00)
[2016-11-27] MEDS ORDERED: MAGNESIUM SULFATE PMX 2GM/50ML 50 ML IV ONE (16:00)
[2016-11-27] MEDS ORDERED: SYMBICORT 160 MCG INH PRN (16:00)
[2016-11-27] MEDS ORDERED: POTASSIUM PHOSPHATE 44 MEQ in SODIUM CHLORIDE 0.9% 500 ML IV ONE (16:00)
[2016-11-27 16:55] LABS: BLOOD UREA NITROGEN 7 mg/dL (7-18)
[2016-11-27 17:13] VITALS: BP 122/47
[2016-11-27] MEDS: NICOTINE 14MG/24 HR PATCH.TD24 TD SCH (18:00)
[2016-11-27 20:00] VITALS: BP 104/67
[2016-11-27] MEDS: SYMBICORT INH PRN (20:38)
[2016-11-27] MEDS: ENOXAPARIN 40 MG/0.4 ML SQ SCH (22:05)
[2016-11-28 02:00] VITALS: BP 138/66
[2016-11-28] MEDS: morphine SULFATE 10 MG/ML, 1ML IVPush PRN ×2 (02:37→09:41)
[2016-11-28 07:05] VITALS: BP 126/60
[2016-11-28] MEDS: PANTOPRAZOLE 40 MG IV IVPush SCH (09:41)
[2016-11-28] MEDS: SYMBICORT INH PRN (11:28)
[2016-11-28] MEDS ORDERED: HYDROcodone/APAP 5/325 TABLET ONE (13:45)
[2016-11-28] MEDS: HYDROcodone/APAP 5/325 TABLET PO PRN ×2 (13:48→18:20)
[2016-11-28] MEDS: SODIUM CHLORIDE 0.9% 1,000 ML IV SCH ×2 (13:48→18:30)
[2016-11-28 14:32] VITALS: BP 117/57
[2016-11-28] MEDS ORDERED: NICO1PAT4 TD (16:14)
[2016-11-28] MEDS ORDERED: POLY17PO5 PO (16:14)
[2016-11-28] MEDS: NICOTINE 14MG/24 HR PATCH.TD24 TD SCH (16:23)
== END 2016-11-28 20:51 | disposition home or self-care (01) | DRG 391 ==
LOC: ED 14:03 → EDIP 16:04 → 3NE 17:17
PROVIDERS: ADMIT Internal Medicine; ATTEND Internal Medicine
DX: K52.9 Noninfective gastroenteritis and colitis, unspecified (principal); E43 Unspecified severe protein-calorie malnutrition; J96.10 Chronic respiratory failure, unspecified whether with hypoxia or hypercapnia; E86.0 Dehydration; L89.152 Pressure ulcer of sacral region, stage 2; E83.39 Other disorders of phosphorus metabolism; F17.200 Nicotine dependence, unspecified, uncomplicated; J44.9 Chronic obstructive pulmonary disease, unspecified; R62.7 Adult failure to thrive; Z85.41 Personal history of malignant neoplasm of cervix uteri; Z86.14 Personal history of Methicillin resistant Staphylococcus aureus infection; Z86.19 Personal history of other infectious and parasitic diseases; Z90.710 Acquired absence of both cervix and uterus; Z99.81 Dependence on supplemental oxygen; Z68.27 Body mass index [BMI] 27.0-27.9, adult; Z88.6 Allergy status to analgesic agent; Z88.8 Allergy status to other drugs, medicaments and biological substances
CPT/HCPCS: 36415; 80048; 80053; 82705; 83690; 83735; 84100; 84439; 84443; 85025; 87046; 87324; 87899; 89055; 93005; 96361; 96374; 96375; 96376; J1650; J2405; C9113; J2270; J3475; J7030; J7040